=== PATIENT | female | born 1970 | race Caucasian/White ===

== ENCOUNTER 2016-05-06 22:18 | Inpatient (IN) | payer MEDICARE, OTHER ==
--- NOTE | ~2016-05-06 | DS ---
Discharge Summary [facility] [address] [place]. [address] NAME: REFINERY OPERATOR ASSISTANT,JAKOB ELLIOTT : 72 STATUS : ADM IN [facility]#: [id number] AGE: 46 ADM/REG DATE : 05/08/16 MR#: [id number] REPORT SERV DATE: 05/09/16 DICTATED BY: SHARMILA HUBBARD DATE: 05/09/16 REPORT STATUS : Draft TRANSCRIBED BY: MODL DATE: 05/09/16 ADMISSION DATE: 05/08/2016 DISCHARGE DATE: 05/09/2016 FINAL HOSPITAL DIAGNOSES: 1. Urinary tract infection, possible pyelo. 2. History of asthma and chronic obstructive pulmonary disease. 3. History of schizoaffective disorder. 4. History of cerebrovascular accident x2. 5. History of hearing impairment. 6. History of ovarian cancer. CONSULTATIONS: None. PROCEDURES: CT of the abdomen and pelvis done on the showing mildly prominent right renal pelvis and ureter with subtle infiltration of periureteral and peripelvic fat planes suggesting an inflammatory process such as an underlying UTI complex, 1.8 cm cyst in the mid pole of left kidney, status post hysterectomy. CURRENT PHYSICAL FINDINGS AND HPI: Please see dictated H and P by Dr. Dooley. In brief, the patient is a 46-year-old female with above history, reported multiple episodes of vomiting at home, subjective fever, chills, and hematuria. Vital signs at the time of presentation, BP was 130/79, temp was 99.1, which was her T-max here; pulses had been in the 70s and 80s. LAB WORK: Procalcitonin was 0.06. BMP was unremarkable. HCG was negative. CBC showed a white count of 10.1 on admission, repeated on was at 7.1, otherwise unremarkable. Urinalysis showed cloudy large LE, many wbc clumps, rare bacteria. Microbiology showed blood cultures negative at one day. Urine culture grew out E coli, resistant to Bactrim, but sensitive to Cipro, penicillin, and Macrobid. HOSPITAL COURSE: The patient was admitted for UTI, nausea, vomiting, rule out pyelo. She was started on reasonable antiemetics. Home medications reviewed and ordered appropriately. Labs and cultures were drawn as noted above. The CT scan was ordered as noted above and she was initially placed on Levaquin IV as well as DVT prophylaxis. She was held n.p.o. pending her CT as she was also having the nausea and vomiting. I saw her on the morning of the . Diet was ordered after the CT. She complained of some dry lips and a rash on her lower extremities. Some hydrocortisone was given. The following day, she stated that she was concerned of taking the Levaquin continuously because of her lips. She was requesting a change in medication. Based on her cultures and allergies, aztreonam was given. She also complained of leg cramps and Requip was given. I reassessed her on the morning of the . The patient was not having any pain, nausea, vomiting, or difficulty urinating. She felt the Azactam made the room "feel like it was closing in on her" and preferred to go back on the Levaquin. Given her only other p.o. choice of outpatient antibiotic being Macrobid, I also would prefer her on the Levaquin. I do not believe the mild skin rash or complaint of dry lips was directly related to the Levaquin and she is comfortable taking it and Discharge Summary [address] [address] NAME: REFINERY OPERATOR ASSISTANTJAKOB : 72 STATUS : ADM IN PAT#: [id number] AGE: 46 ADM/REG DATE : 05/08/16 MR#: [id number] REPORT SERV DATE: 05/09/16 DICTATED BY: SHARMILA HUBBARD DATE: 05/09/16 REPORT STATUS : Draft TRANSCRIBED BY: ROD DATE: 05/09/16 comfortable being discharged. Recommendations would be to follow up with her PCP in 10-14 days to recheck the UA and make sure it is cleared. We will give her an additional seven days of treatment. This should complete a 10-day course and be satisfactory treatment. She will call her PCP if she develops any other complications or worsening problems with the meds. She was also given a prescription for Requip 0.25 at bedtime for the leg cramps in addition to the Rx for the Levaquin 750 one per day. Otherwise, she will resume her home medications, which were Combivent, EpiPen, and Ventolin inhaler. She is to return for any recurrent symptoms. We will also ask her PCP to continue to follow the slightly complex renal cyst noted on her CT scan to assess stability. TLF/MODL Sharmila Hubbard M.D. / [id number]
--- NOTE | ~2016-05-06 | HP ---
History And Physical [address] [id number] [place]. [address] NAME: SOFTWARE DATABASE ARCHITECT,JAKOB ELLIOTT : 72 STATUS : ADM Nelsy PAT#: [id number] AGE: 46 ADM/REG DATE : 05/06/16 MR#: [id number] REPORT SERV DATE: 05/07/16 DICTATED BY: PATY JOHNSON DATE: 05/06/16 REPORT STATUS : Draft TRANSCRIBED BY: ROD DATE: 05/06/16 DATE OF ADMISSION: 05/06/2016 CHIEF COMPLAINT: Nausea and vomiting, and right flank pain. HISTORY OF PRESENT ILLNESS: This is a 46-year-old female with medical history significant for ovarian cancer, status post radiation in 1998; CVA x2 with left-sided hemiparesis; asthma/COPD; hearing impairment, status post cochlear implant; schizoaffective disorder, who presented to the hospital with complaints of nausea and vomiting. The patient reports that she was in her usual state of health until about a week ago when she suddenly developed nausea and started having multiple episodes of vomiting. She reported that the vomiting persisted. She reported that she vomited several times a day. Subsequently, she developed frequency, urgency, and dysuria. There was associated subjective fever and chills. The patient also noted that she has had some episodes of intermittent hematuria in her urine. She reported that she continued to have significant fatigue, feeling very weak, and was unable to tolerate p.o. Hence, she decided to come to the hospital for further evaluation. PAST MEDICAL HISTORY: 1. Asthma with COPD. 2. Schizoaffective disorder. 3. Hearing impairment, status post cochlear implant. 4. CVA x2. 5. Left hemiparesis. 6. History of ovarian cancer, status post radiation therapy in 1990. The patient, at that time, declined chemotherapy and did not have an oophorectomy (verbal report). PAST SURGICAL HISTORY: 1. Hysterectomy. 2. Cochlear implant. FAMILY HISTORY: Significant for leukemia in the mother, who at the age of 22; also significant for history of breast cancer, Alzheimer's dementia in the brother, and history of IA in the father. SOCIAL HISTORY: Smokes about 2 to 3 cigarettes a day. Denies drinking alcohol or illicit drug use. ALLERGIES: 1. PENICILLIN. 2. SULFA ANTIBIOTICS. 3. LITHIUM. 4. MORPHINE. 5. DEPAKOTE. 6. AMPHETAMINE. 7. DEXTROAMPHETAMINE. 8. RISPERIDONE. History And Physical [address] [place]. [address] NAME: SOFTWARE DATABASE ARCHITECTJAKOB : 72 STATUS : ADM Nelsy PAT#: [id number] AGE: 46 ADM/REG DATE : 05/06/16 MR#: [id number] REPORT SERV DATE: 05/07/16 DICTATED BY: PATY JOHNSON DATE: 05/06/16 REPORT STATUS : Draft TRANSCRIBED BY: ROD DATE: 05/06/16 9. FLUOXETINE. 10.MEPERIDINE. 11.HYDROMORPHONE. 12.FLEXERIL. 13.SEROQUEL. 14.LATEX. MEDICATIONS: 1. Albuterol HFA two puffs four times a day. 2. Epinephrine 0.3 mg auto-inject. 3. Combivent Respimat inhaler one puff b.i.d. REVIEW OF SYSTEMS: A 12-point review of systems conducted, essentially negative. Positive findings as per history. PHYSICAL EXAMINATION: VITAL SIGNS: Blood pressure 117/74, temperature 36.6, pulse rate 108 beats per minute. GENERAL: In mild acute distress due to abdominal pain. HEENT: Normocephalic and atraumatic. Extraocular muscles intact. Pupils are equal, round, and reactive, not pale, not jaundiced. Oral mucosa moist. NECK: Supple. No JVD. CHEST: Equal expansion. Nontender. LUNGS: Clear to auscultation bilaterally. No wheezes. No rhonchi. No crackles. CARDIOVASCULAR: Regular rate and rhythm. S1 and S2. No murmurs. No rubs. ABDOMEN: Bowel sounds normoactive. Right flank tenderness with positive CVA tenderness. No palpably enlarged organomegaly. EXTREMITIES: No pedal edema. NEURO: Alert and oriented x3. Strength 4/5 on the left side, 5/5 on the right side. Fixed flexion deformity of the left hand. LABORATORY DATA: Chemistry: Sodium 139, potassium 3.5, chloride 105, bicarbonate 25, creatinine 0.7, BUN 10, glucose 108, calcium 8.8, total protein 7.9, albumin 3.4, globulin 4.5, alkaline phosphatase 80, ALT 14, AST 17, lipase 142. Hematology: WBC 10.1, hemoglobin 4.2, hematocrit 40.6, and platelets 263. Urinalysis: Urine cloudy, leukocyte esterase positive, WBC clumps, bacteria many. Urine culture is pending. Blood cultures taken. CT of abdomen and pelvis pending. SUMMARY: This is a 46-year-old female who presented to the hospital with nausea, and vomiting, right flank pain with associated frequency, urgency, hematuria, found to have a positive urinalysis. Constellation of symptoms concerning for possible acute pyelonephritis. The patient was unable to be discharged home on p.o. antibiotics despite not having systemic inflammatory response due to persistent nausea and vomiting. Hence, the patient was admitted to the Hospitalist Service. History And Physical [address] [address] NAME: SOFTWARE DATABASE ARCHITECTJAKOB : 72 STATUS : ADM Nelsy PAT#: [id number] AGE: 46 ADM/REG DATE : 05/06/16 MR#: [id number] REPORT SERV DATE: 05/07/16 DICTATED BY: PATY JOHNSON DATE: 05/06/16 REPORT STATUS : Draft TRANSCRIBED BY: ROD DATE: 05/06/16 ASSESSMENT: Acute pyelonephritis. The patient presented with constellation of symptoms of right flank pain, nausea, abdominal pain, and with positive UA. The patient was unable to tolerate p.o. antibiotics. The patient will be started on IV levofloxacin. The patient will be admitted to the hospital under observation status. A CT of the abdomen and pelvis will be obtained given reported history of hematuria to rule out possible renal stones. We will continue IV fluid resuscitation. We will follow urine cultures and blood cultures. We will continue to monitor. Other chronic comorbidities that will be managed during the course of this admission include: 1. Asthma/chronic obstructive pulmonary disease. We will continue the patient's inhaler. 2. History of cerebrovascular accident with left-sided hemiparesis. We will continue physical therapy during the course of this admission. We will continue to monitor the patient closely. ADMISSION STATUS: Observation. DVT PROPHYLAXIS: Heparin subcu. ADMISSION DISPOSITION: CDU. The patient will be followed under the Hospitalist Service. PHILLIP/ROD Paty Johnson MD / [id number] CC: Owen Crook KAY
[2016-05-06 18:52] LABS: BASOPHILS 0.3 %; BASOPHILS ABSOLUTE 0.03 10/3/uL (0.0-0.16); EOSINOPHILS 0.5 %; EOSINOPHILS ABSOLUTE 0.05 10/3/uL (0.0-0.53); HEMATOCRIT 40.6 % (36.0-48.0); HEMOGLOBIN 14.2 g/dL (12.0-16.0); IMMATURE GRANULOCYTES 0.3 %; IMMATURE GRANULOCYTES ABSOLUTE 0.03 10/3/uL (0.0-0.11); LYMPHOCYTES 14.3 %; LYMPHOCYTES ABSOLUTE 1.44 10/3/uL (0.67-4.30); MEAN CORPUSCULAR HEMOGLOB 30.7 pg (26.0-34.0); MEAN CORPUSCULAR VOLUME 87.9 fL (80-100); MEAN PLATELET VOLUME 9.5 fL (9.2-13.0); MONOCYTES 12.1 %; MONOCYTES ABSOLUTE 1.22 10/3/uL (0.21-1.20); NEUTROPHILS 72.5 %; NEUTROPHILS ABSOLUTE 7.32 10/3/uL (2.02-8.40); PLATELET COUNT 263 10/3/uL (150-400); RBC DISTRIBUTION WIDTH 13.2 % (12.0-16.0); RED CELL COUNT 4.62 10/6/uL (4.0-5.6)
[2016-05-06 19:00] LABS: MANUAL DIFF NO %; WHITE BLOOD CELLS 10.1 10/3/uL (4.5-10.5)
[2016-05-06 19:01] LABS: ASCORBIC ACID (UR NOT ORDER) 40 (NEG); BILIRUBIN, URINE NEGATIVE (NEG); ER URINALYSIS TAT 0 Hrs 18 Mins; KETONE, URINE NEGATIVE (NEG); LEUKOCYTE ESTERASE(NOT OR LARGE (NEG); NITRITE (URINE) NEG (NEG); WBC (NOT ORDERED) (RFLEX) > 182 (0-5)
[2016-05-06 19:03] LABS: A/G RATIO 0.8 (0.7-1.9); ALBUMIN 3.4 G/DL (3.5-5.0); ALKALINE PHOSPHATASE 80 U/L (45-117); BUN (BLOOD UREA NITROGEN) 10 MG/DL (6-23); CALCIUM, SERUM 8.8 MG/DL (8.5-10.4); CHLORIDE, SERUM 105 MMOL/L (96-112); CO2 (CARBON DIOXIDE) 25 MMOL/L (24-34); CREATININE 0.77 MG/DL (0.55-1.02); GFR AFRICAN AMERICAN 108 ML/MIN (>=60); GFR NON AFRICAN AMERICAN 93 ML/MIN (>=60); GLOBULIN 4.5 G/DL (2.5-4.1); GLUCOSE, SERUM 120 MG/DL (60-99); POTASSIUM, SERUM 3.5 MMOL/L (3.5-5.3); SGOT(AST) 7 U/L (5-40); SGPT(ALT) 14 U/L (5-65); SODIUM, SERUM 139 MMOL/L (135-148); TOTAL BILIRUBIN 0.4 MG/DL (0-1.2); TOTAL PROTEIN 7.9 G/DL (6.0-8.5)
[~2016-05-06 22:18] MED LIST: COMBIVENT RESPIM4 GM INH; EPIPEN0.3 IM; VENTOLIN HFA INH
[2016-05-06 23:09] LABS: PROCALCITONIN 0.08 ng/mL (<0.5)
[2016-05-07 04:15] LABS: BASOPHILS 0.3 %; BASOPHILS ABSOLUTE 0.02 10/3/uL (0.0-0.16); EOSINOPHILS 0.7 %; EOSINOPHILS ABSOLUTE 0.05 10/3/uL (0.0-0.53); IMMATURE GRANULOCYTES 0.3 %; IMMATURE GRANULOCYTES ABSOLUTE 0.02 10/3/uL (0.0-0.11); LYMPHOCYTES 19.4 %; LYMPHOCYTES ABSOLUTE 1.37 10/3/uL (0.67-4.30); MEAN CORPUS HGB CONC 33.3 g/dL (32.0-36.0); MEAN CORPUSCULAR HEMOGLOB 29.4 pg (26.0-34.0); MEAN CORPUSCULAR VOLUME 88.2 fL (80-100); MEAN PLATELET VOLUME 9.6 fL (9.2-13.0); MONOCYTES 13.3 %; MONOCYTES ABSOLUTE 0.94 10/3/uL (0.21-1.20); NEUTROPHILS ABSOLUTE 4.66 10/3/uL (2.02-8.40); PLATELET COUNT 235 10/3/uL (150-400); RED CELL COUNT 4.08 10/6/uL (4.0-5.6); WHITE BLOOD CELLS 7.1 10/3/uL (4.5-10.5)
[2016-05-07 04:18] LABS: MANUAL DIFF NO %
[2016-05-07 04:41] LABS: BUN (BLOOD UREA NITROGEN) 9 MG/DL (6-23); CHLORIDE, SERUM 104 MMOL/L (96-112); CO2 (CARBON DIOXIDE) 28 MMOL/L (24-34); CREATININE 0.72 MG/DL (0.55-1.02); GFR AFRICAN AMERICAN 117 ML/MIN (>=60); GFR NON AFRICAN AMERICAN 101 ML/MIN (>=60); GLUCOSE, SERUM 98 MG/DL (60-99); POTASSIUM, SERUM 3.6 MMOL/L (3.5-5.3); SODIUM, SERUM 141 MMOL/L (135-148)
[2016-05-07 04:42] LABS: ALBUMIN 2.7 G/DL (3.5-5.0)
[2016-05-07 05:52] LABS: PROCALCITONIN 0.06 ng/mL (<0.5)
[2016-05-09] MEDS ORDERED: REQUIP25 PO (10:01)
[2016-05-09] MEDS ORDERED: LEVAQUIN750 MG PO (10:01)
== END 2016-05-09 11:54 | disposition home or self-care (01) | DRG 690 ==
LOC: ER 22:18 → 4SO 22:39
PROVIDERS: Emergency Medicine; Internal Medicine
DX: N10 Acute pyelonephritis (principal); I69.954 Hemiplegia and hemiparesis following unspecified cerebrovascular disease affecting left non-dominant side; Z85.43 Personal history of malignant neoplasm of ovary; Z92.3 Personal history of irradiation; F17.210 Nicotine dependence, cigarettes, uncomplicated; Z88.8 Allergy status to other drugs, medicaments and biological substances; Z88.0 Allergy status to penicillin; Z88.2 Allergy status to sulfonamides; Z88.1 Allergy status to other antibiotic agents; Z88.5 Allergy status to narcotic agent; Z91.040 Latex allergy status; J44.9 Chronic obstructive pulmonary disease, unspecified; J45.909 Unspecified asthma, uncomplicated; F25.9 Schizoaffective disorder, unspecified; H91.90 Unspecified hearing loss, unspecified ear; B96.20 Unspecified Escherichia coli [E. coli] as the cause of diseases classified elsewhere; Z16.39 Resistance to other specified antimicrobial drug; N28.1 Cyst of kidney, acquired
CPT/HCPCS: 71020; 74176; 80053; 80069; 81001; 83690; 83735; 84145; 84439; 84443; 84703; 85025; 87040; 87077; 87086; 87186; 93005; 96374; 96375; 99285; A9270-GY; J1956; J2405

== ENCOUNTER 2016-05-17 22:11 | Emergency (ER) | payer MEDICARE, OTHER ==
[2016-05-17 19:26] LABS: WBC (NOT ORDERED) (RFLEX) 0 (0-5)
[2016-05-17 19:30] LABS: BASOPHILS 0.2 %; BASOPHILS ABSOLUTE 0.02 10/3/uL (0.0-0.16); EOSINOPHILS 1.3 %; EOSINOPHILS ABSOLUTE 0.12 10/3/uL (0.0-0.53); ER CBC TAT 0 Hrs 11 Mins; IMMATURE GRANULOCYTES 0.7 %; IMMATURE GRANULOCYTES ABSOLUTE 0.07 10/3/uL (0.0-0.11); LYMPHOCYTES 24.2 %; LYMPHOCYTES ABSOLUTE 2.32 10/3/uL (0.67-4.30); MEAN CORPUS HGB CONC 34.8 g/dL (32.0-36.0); MEAN CORPUSCULAR HEMOGLOB 30.4 pg (26.0-34.0); MEAN CORPUSCULAR VOLUME 87.4 fL (80-100); MEAN PLATELET VOLUME 9.2 fL (9.2-13.0); MONOCYTES 4.8 %; MONOCYTES ABSOLUTE 0.46 10/3/uL (0.21-1.20); NEUTROPHILS 68.8 %; NEUTROPHILS ABSOLUTE 6.59 10/3/uL (2.02-8.40); RBC DISTRIBUTION WIDTH 13.2 % (12.0-16.0); RED CELL COUNT 4.84 10/6/uL (4.0-5.6); WHITE BLOOD CELLS 9.6 10/3/uL (4.5-10.5)
[2016-05-17 19:31] LABS: HEMATOCRIT 42.3 % (36.0-48.0); HEMOGLOBIN 14.7 g/dL (12.0-16.0); MANUAL DIFF NO %; PLATELET COUNT 384 10/3/uL (150-400)
[2016-05-17 19:38] LABS: ASCORBIC ACID (UR NOT ORDER) NEG (NEG); BILIRUBIN, URINE NEGATIVE (NEG); ER URINALYSIS TAT 0 Hrs 19 Mins; KETONE, URINE NEGATIVE (NEG); LEUKOCYTE ESTERASE(NOT OR NEG (NEG); NITRITE (URINE) NEG (NEG)
[2016-05-17 19:47] LABS: BUN (BLOOD UREA NITROGEN) 10 MG/DL (6-23); CHLORIDE, SERUM 106 MMOL/L (96-112); CO2 (CARBON DIOXIDE) 28 MMOL/L (24-34); CREATININE 0.76 MG/DL (0.55-1.02); GFR AFRICAN AMERICAN 110 ML/MIN (>=60); GFR NON AFRICAN AMERICAN 95 ML/MIN (>=60); POTASSIUM, SERUM 3.8 MMOL/L (3.5-5.3); SGOT(AST) 12 U/L (5-40); SGPT(ALT) 22 U/L (5-65); SODIUM, SERUM 142 MMOL/L (135-148); TOTAL BILIRUBIN 0.2 MG/DL (0-1.2)
[2016-05-17 19:48] LABS: A/G RATIO 0.9 (0.7-1.9); ALBUMIN 3.7 G/DL (3.5-5.0); ALKALINE PHOSPHATASE 66 U/L (45-117); CALCIUM, SERUM 9.1 MG/DL (8.5-10.4); GLOBULIN 4.3 G/DL (2.5-4.1); GLUCOSE, SERUM 73 MG/DL (60-99)
[~2016-05-17 22:11] MED LIST changes: +LEVAQUIN750 MG PO; +REQUIP25 PO
== END 2016-05-17 23:25 | disposition home or self-care (01) ==
LOC: ER 22:11
PROVIDERS: Emergency Medicine
DX: R10.9 Unspecified abdominal pain (principal); R11.0 Nausea; J45.909 Unspecified asthma, uncomplicated; J44.9 Chronic obstructive pulmonary disease, unspecified; Z86.73 Personal history of transient ischemic attack (TIA), and cerebral infarction without residual deficits; F17.200 Nicotine dependence, unspecified, uncomplicated; Z88.0 Allergy status to penicillin; Z88.2 Allergy status to sulfonamides; Z88.5 Allergy status to narcotic agent; Z91.040 Latex allergy status; Z88.8 Allergy status to other drugs, medicaments and biological substances; Z79.899 Other long term (current) drug therapy
CPT/HCPCS: 71020; 80053; 81001; 83690; 84703; 85025; 94640; 99284

== ENCOUNTER 2016-07-15 15:27 | Emergency (ER) | payer MEDICARE, OTHER | END 2016-07-15 15:35 | disposition home or self-care (01) | LOC: ER 15:27 | PROC: 2W3CX1Z Immobilization of Right Lower Arm using Splint (ICD-10-PCS; principal; 2016-07-15) | DX: S63.501A Unspecified sprain of right wrist, initial encounter (principal); F17.200 Nicotine dependence, unspecified, uncomplicated; J44.9 Chronic obstructive pulmonary disease, unspecified; J45.909 Unspecified asthma, uncomplicated; Z86.73 Personal history of transient ischemic attack (TIA), and cerebral infarction without residual deficits; F20.9 Schizophrenia, unspecified; Z88.0 Allergy status to penicillin; Z88.2 Allergy status to sulfonamides; Z88.5 Allergy status to narcotic agent; Z91.040 Latex allergy status; Z79.2 Long term (current) use of antibiotics; Z79.899 Other long term (current) drug therapy; W19.XXXA Unspecified fall, initial encounter; Z88.8 Allergy status to other drugs, medicaments and biological substances | CPT/HCPCS: 73110-RT; 99283 ==